=== PATIENT | male | born 1985 | race Caucasian/White ===

== ENCOUNTER 2018-11-07 17:51 | Emergency (ER) | payer OTHER ==
[2018-11-07 17:57] VITALS: BP 167/78
[2018-11-07] MEDS ORDERED: LIDOCAINE 5% (700 MG) TRANSDERMAL ADH..PATCH TP ONE (18:09)
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
== END 2018-11-07 18:33 | disposition home or self-care (01) ==
LOC: ER 17:51
DX: M25.512 Pain in left shoulder (principal); M54.5 Low back pain; V43.52XA Car driver injured in collision with other type car in traffic accident, initial encounter; Y92.413 State road as the place of occurrence of the external cause
CPT/HCPCS: 99283